=== PATIENT | male | born 1965 | race Caucasian/White ===

== ENCOUNTER 2017-10-15 17:10 | Emergency (ER) | payer OTHER ==
[~2017-10-15] VITALS: Ht 188 cm; Wt 87.9 kg
[~2017-10-15 17:10] MED LIST: PANTOPRAZOLE SO40 MG PO; PRAVACHOL40 MG PO; ZESTRIL,PRINIVI20 MG PO
[2017-10-15 17:18] VITALS: BP 162/98
[2017-10-15 17:43] LABS: HEMATOCRIT 43.2 % (38.0-50.0); MCH 31.5 PG (29.0-34.0); MCHC 36.3 G/DL (30.0-36.0); MCV 86.7 FL (86-99); MEAN PLAT.VOLUME 10.3 uM^3 (9.0-12.4); PLATELET COUNT 262 K/uL (156-360); RBC DIS.WIDTH-CV 11.6 % (11.8-14.6); RBC DIS.WIDTH-SD 36.7 % (39-53); RED BLOOD COUNT 4.98 M/uL (4.00-5.50); WHITE BLOOD COUNT 7.9 K/uL (4.1-10.2)
[2017-10-15 17:51] LABS: CHLORIDE 99 mEq/L (99-109); POTASSIUM 3.9 mEq/L (3.7-5.4); SODIUM 137 mEq/L (136-147)
[2017-10-15 17:54] LABS: GLUCOSE 98 mg/dL (70-99)
[2017-10-15 17:55] LABS: ANION GAP 10 MEQ/L (2-14)
[2017-10-15 17:56] LABS: TOTAL BILIRUBIN 0.5 mg/dL (0.0-1.0)
[2017-10-15 17:57] LABS: ALKALINE PHOSPHATASE 38 IU/L (3-129); GFR ESTIMATE (CALCULATED) > 59 mL/min/
[2017-10-15 17:58] LABS: UREA NITROGEN (BUN) 12 mg/dL (9-23)
[2017-10-15 18:03] LABS: TROP-I INTERPRETATION NEGATIVE; TROPONIN-I < 0.01 ng/mL (0.0-0.30)
== END 2017-10-15 20:17 | disposition left against medical advice (07) ==
LOC: EME 17:10
DX: R07.9 Chest pain, unspecified (principal); Z53.21 Procedure and treatment not carried out due to patient leaving prior to being seen by health care provider
CPT/HCPCS: 71020; 80053; 84484; 85027; 93005

== ENCOUNTER 2018-03-01 11:01 | Emergency (ER) | payer BC ==
[~2018-03-01] VITALS: Ht 185.4 cm; Wt 89.3 kg
[2018-03-01 12:55] LABS: HEMATOCRIT 45.3 % (38.0-50.0); HEMOGLOBIN 16.4 G/DL (12.5-16.6); MCH 32.3 PG (29.0-34.0); MCHC 36.2 G/DL (30.0-36.0); MCV 89.2 FL (86-99); PLATELET COUNT 267 K/uL (156-360); RBC DIS.WIDTH-CV 11.9 % (11.8-14.6); RBC DIS.WIDTH-SD 38.6 % (39-53); RED BLOOD COUNT 5.08 M/uL (4.00-5.50); WHITE BLOOD COUNT 6.7 K/uL (4.1-10.2)
[2018-03-01 13:10] LABS: CHLORIDE 98 mEq/L (99-109); POTASSIUM 3.9 mEq/L (3.7-5.4); SODIUM 137 mEq/L (136-147)
[2018-03-01 13:11] LABS: GLUCOSE 99 mg/dL (70-99)
[2018-03-01 13:15] LABS: CREATININE 0.9 mg/dL (0.6-1.3); GFR ESTIMATE (CALCULATED) > 59 mL/min/ (58.99-99999)
[2018-03-01 13:16] LABS: UREA NITROGEN (BUN) 10 mg/dL (9-23)
[2018-03-01 13:23] LABS: TROP-I INTERPRETATION NEGATIVE; TROPONIN-I < 0.01 ng/mL (0.0-0.30)
[2018-03-01 15:35] VITALS: BP 110/81
== END 2018-03-01 15:41 | disposition home or self-care (01) ==
LOC: EME 11:01
PROVIDERS: Emergency Medicine
DX: G45.9 Transient cerebral ischemic attack, unspecified (principal); I10 Essential (primary) hypertension; E78.5 Hyperlipidemia, unspecified; K21.9 Gastro-esophageal reflux disease without esophagitis; F17.200 Nicotine dependence, unspecified, uncomplicated
CPT/HCPCS: 70551; 80048; 84484; 85027; 93005; 93880; 99281; 99284; J7030